=== PATIENT | female | born 2000 | race Caucasian/White ===

== ENCOUNTER 2020-09-05 14:33 | Inpatient (IN) | payer OTHER, MEDICAID ==
[~2020-09-05] VITALS: Ht 317.5 cm; Wt 84.8 kg
[2020-09-05] MEDS ORDERED: ACETAMINOPHEN 325MG TABLET PO ONE (15:00)
[2020-09-05] MEDS ORDERED: DEXAMETHASONE 4MG/ML 1ML VIAL IV ONE (15:00)
[2020-09-05] MEDS ORDERED: GUAIFENESIN/CODEINE 100-10MG/5ML UDC PO ONE (15:00)
[2020-09-05 15:39] LABS: BASOPHILS % 0.2 % (0.0-2.0); EOSINOPHILS % 0.1 % (0.0-5.0); HEMATOCRIT. 38.1 % (36.0-48.0); HEMOGLOBIN. 12.9 g/dL (12.0-16.0); LYMPHOCYTES % 23.8 % (20.0-50.0); MEAN CORPUSCULAR HEMOGLOBIN 27.7 pg (28.0-32.0); MEAN CORPUSCULAR VOLUME 81.9 fL (81.0-99.0); MEAN PLATELET VOLUME 8.9 fl (7.4-10.4); MONOCYTES % 5.6 % (2.0-8.0); NEUTROPHILS % 70.3 % (40.0-76.0); PLATELET 173 x1000/uL (130-400); RED BLOOD CELL COUNT 4.65 mill/uL (4.2-5.4); RED CELL DISTRIBUTION WIDTH 13.6 % (11.6-14.6)
[2020-09-05 15:46] LABS: CHLORIDE 106 mEq/L (98-107)
[2020-09-05 15:52] LABS: BG BASE EXCESS -1.9 mmol/L (-2.0-2.0); BG CARBOXYHEMOGLOBIN 0.1 % (0.5-1.5); BG DEOXYHEMOGLOBIN 6.8 % (0.0-5.0); BG HCO3 ACT 21.2 mmol/L (22.0-26.0); BG METHEMOGLOBIN 0.2 % (0.0-1.5); BG OXYGEN SATURATION 93.2 % (92.0-98.5); BG OXYHEMOGLOBIN 92.9 % (94.0-97.0); BG PCO2 31.4 mmHg (35.0-45.0); BG PH 7.448 (7.350-7.450); BG PO2 65.6 mmHg (75.0-100.0); BG SAMPLE SITE RIGHT RADIAL; BG TOTAL HEMOGLOBIN 13.2 g/dL (12.0-18.0); BG VENT MODE ROOM AIR
[2020-09-05] MEDS ORDERED: GUAIFENESIN/CODEINE 200-20MG/10ML UDC PO NR ×2 (16:00→16:50)
[2020-09-05] MEDS ORDERED: ALBUTEROL 6.7GM HFA INHALER ORI PRN (16:45)
[2020-09-05] MEDS ORDERED: NITROGLYCERIN 0.4MG TABLET SL SL PRN (16:45)
[2020-09-05] MEDS ORDERED: MAGNESIUM/ALUMINUM HYDROXIDE/SIMETHICONE 30ML UDC PO PRN (16:45)
[2020-09-05] MEDS ORDERED: CLONIDINE 0.1MG TABLET PO PRN (16:45)
[2020-09-05] MEDS ORDERED: DOCUSATE SODIUM 100MG CAPSULE PO PRN (16:45)
[2020-09-05] MEDS ORDERED: ACETAMINOPHEN 325MG TABLET PO PRN (16:45)
[2020-09-05] MEDS ORDERED: CEFTRIAXONE 1 G PREMIX 50 ML IV SCH (17:00)
[2020-09-05] MEDS ORDERED: KETOROLAC 15MG/ML VIAL IV PRN (17:08)
[2020-09-05] MEDS: ENOXAPARIN 40MG/0.4ML SYR SUBCUT SCH (17:47)
[2020-09-05 17:52] LABS: T4 FREE 1.27 ng/dL (0.76-1.46)
[2020-09-05] MEDS ORDERED: AZITHROMYCIN 500 MG in DEXT 5% WATER 250 ML IV SCH (18:00)
[2020-09-05 19:46] LABS: UCG SCREEN NEGATIVE
[2020-09-05] MEDS ORDERED: ZOLPIDEM TARTRATE 5MG TABLET PO PRN (20:00)
[2020-09-05 20:28] LABS: *BENZODIAZEPINES SCREEN URINE NEGATIVE (NEGATIVE); *COCAINE SCREEN URINE NEGATIVE (NEGATIVE); METHADONE URINE SCREEN NEGATIVE (NEGATIVE)
[2020-09-05 20:29] LABS: *AMPHETAMINES SCREEN URINE NEGATIVE (NEGATIVE); *BARBITURATES SCREEN URINE NEGATIVE (NEGATIVE); CANNABINOID URINE SCREEN NEGATIVE (NEGATIVE); OPIATES URINE SCREEN NEGATIVE (NEGATIVE); PHENCYCLIDINE URINE SCREEN NEGATIVE (NEGATIVE)
[2020-09-05] MEDS: FAMOTIDINE 20MG TABLET PO SCH (20:33)
[2020-09-05] MEDS: ASCORBIC ACID 500 MG TABLET PO SCH (20:33)
[2020-09-05] MEDS: GUAIFENESIN/DM 600MG/30MG ER TAB 12HR PO SCH (20:33)
[2020-09-05] MEDS: ALBUTEROL 6.7GM HFA INHALER ORI SCH (21:54)
[2020-09-06 01:03] LABS: CREATINE KINASE 251 IU/L (26-192)
[2020-09-06 01:04] LABS: CREATINE KINASE MB FRACTION < 1.0 ng/mL (0.5-3.6)
[2020-09-06] MEDS: ALBUTEROL 6.7GM HFA INHALER ORI SCH (02:20)
[2020-09-06 05:02] LABS: HEMATOCRIT. 35.6 % (36.0-48.0); MEAN CORPUSCULAR HEMOGLOBIN 27.7 pg (28.0-32.0); MEAN CORPUSCULAR VOLUME 82.3 fL (81.0-99.0); MEAN PLATELET VOLUME 8.7 fl (7.4-10.4); PLATELET 181 x1000/uL (130-400); RED BLOOD CELL COUNT 4.33 mill/uL (4.2-5.4); RED CELL DISTRIBUTION WIDTH 13.5 % (11.6-14.6)
[2020-09-06 05:10] LABS: CHLORIDE 107 mEq/L (98-107)
[2020-09-06 05:29] LABS: CREATINE KINASE 226 IU/L (26-192)
[2020-09-06 05:32] LABS: CREATINE KINASE MB FRACTION < 1.0 ng/mL (0.5-3.6)
[2020-09-06] MEDS ORDERED: DEXAMETHASONE 10 MG/ML VIAL IV SCH (09:00)
[2020-09-06 11:00] VITALS: BP 106/76
[2020-09-06] MEDS: ASCORBIC ACID 500 MG TABLET PO SCH ×2 (11:34→20:37)
[2020-09-06] MEDS: GUAIFENESIN/DM 600MG/30MG ER TAB 12HR PO SCH ×2 (11:34→20:37)
[2020-09-06] MEDS: CHOLECALCIFEROL (D3) 1000 UNIT TABLET PO SCH (11:34)
[2020-09-06] MEDS: FAMOTIDINE 20MG TABLET PO SCH ×2 (11:34→20:37)
[2020-09-06 11:48] LABS: PLATELET ESTIMATE NORMAL
[2020-09-06 12:00] VITALS: BP 117/71
[2020-09-06] MEDS ORDERED: GUAI600T26 PO (13:00)
[2020-09-06] MEDS ORDERED: GUAI5SYR3 GT (13:00)
[2020-09-06] MEDS ORDERED: TOPUD PO (13:00)
[2020-09-06] MEDS: ZINC SULFATE 220 MG ( 50 ) CAPSULE PO SCH (14:00)
[2020-09-06 16:00] VITALS: BP 115/70
[2020-09-06] MEDS ORDERED: BENZONATATE 100MG CAPSULE PO PRN (18:15)
[2020-09-06] MEDS: ENOXAPARIN 40MG/0.4ML SYR SUBCUT SCH (18:15)
[2020-09-06 20:00] VITALS: BP 105/45
[2020-09-06] MEDS: GUAIFENESIN 200MG/10ML SUGAR FREE UDC PO PRN (20:37)
[2020-09-06] MEDS: AZITHROMYCIN 500 MG in DEXT 5% WATER 250 ML IV SCH (20:37)
[2020-09-06] MEDS: CEFTRIAXONE 1,000 MG in DEXTROSE 5% WATER 50 ML IV SCH (22:24)
[2020-09-06] MEDS: ACETAMINOPHEN 325MG TABLET PO PRN (23:05)
[2020-09-07] VITALS: BP 106/56
[2020-09-07 04:00] VITALS: BP 99/62
[2020-09-07 05:54] LABS: CHLORIDE 109 mEq/L (98-107)
[2020-09-07 06:08] LABS: PHOSPHORUS 3.2 mg/dL (2.5-4.9)
[2020-09-07 06:16] LABS: BASOPHILS % 0.1 % (0.0-2.0); HEMATOCRIT. 35.9 % (36.0-48.0); HEMOGLOBIN. 12.4 g/dL (12.0-16.0); LYMPHOCYTES % 17.4 % (20.0-50.0); MEAN CORPUSCULAR HEMOGLOBIN 28.5 pg (28.0-32.0); MEAN CORPUSCULAR VOLUME 82.7 fL (81.0-99.0); MEAN PLATELET VOLUME 9.6 fl (7.4-10.4); MONOCYTES % 10.2 % (2.0-8.0); NEUTROPHILS % 72.3 % (40.0-76.0); PLATELET 225 x1000/uL (130-400); RED BLOOD CELL COUNT 4.35 mill/uL (4.2-5.4); RED CELL DISTRIBUTION WIDTH 13.5 % (11.6-14.6)
[2020-09-07 08:00] VITALS: BP 103/57
[2020-09-07] MEDS: GUAIFENESIN/DM 600MG/30MG ER TAB 12HR PO SCH ×2 (08:30→20:58)
[2020-09-07] MEDS: GUAIFENESIN 200MG/10ML SUGAR FREE UDC PO PRN ×3 (08:30→20:51)
[2020-09-07] MEDS: ZINC SULFATE 220 MG ( 50 ) CAPSULE PO SCH (08:30)
[2020-09-07] MEDS: ASCORBIC ACID 500 MG TABLET PO SCH ×2 (08:30→20:58)
[2020-09-07] MEDS: FAMOTIDINE 20MG TABLET PO SCH ×2 (08:30→20:58)
[2020-09-07] MEDS: CHOLECALCIFEROL (D3) 1000 UNIT TABLET PO SCH (08:31)
[2020-09-07] MEDS: DEXAMETHASONE 10 MG/ML VIAL IV SCH ×2 (08:31→17:11)
[2020-09-07] MEDS: ALBUTEROL 6.7GM HFA INHALER ORI SCH ×3 (08:36→20:51)
[2020-09-07 12:00] VITALS: BP 100/60
[2020-09-07] MEDS: ONDANSETRON HCL 4MG/2ML INJ IV PRN (14:43)
[2020-09-07 16:00] VITALS: BP 99/68
[2020-09-07] MEDS: AZITHROMYCIN 500 MG in DEXT 5% WATER 250 ML IV SCH (17:08)
[2020-09-07] MEDS: CEFTRIAXONE 1,000 MG in DEXTROSE 5% WATER 50 ML IV SCH (17:08)
[2020-09-07] MEDS: ENOXAPARIN 40MG/0.4ML SYR SUBCUT SCH (17:08)
[2020-09-07 20:00] VITALS: BP 120/64
[2020-09-07] MEDS: ACETAMINOPHEN 325MG TABLET PO PRN (20:53)
[2020-09-08] VITALS: BP 102/59
[2020-09-08] MEDS: ALBUTEROL 6.7GM HFA INHALER ORI SCH ×4 (02:50→21:05)
[2020-09-08 04:00] VITALS: BP 94/51
[2020-09-08 08:00] VITALS: BP 106/66
[2020-09-08] MEDS: ONDANSETRON HCL 4MG/2ML INJ IV PRN (08:14)
[2020-09-08] MEDS: DEXAMETHASONE 10 MG/ML VIAL IV SCH ×2 (08:14→16:58)
[2020-09-08] MEDS: ZINC SULFATE 220 MG ( 50 ) CAPSULE PO SCH (08:15)
[2020-09-08] MEDS: CHOLECALCIFEROL (D3) 1000 UNIT TABLET PO SCH (08:15)
[2020-09-08] MEDS: GUAIFENESIN 200MG/10ML SUGAR FREE UDC PO PRN ×2 (08:15→16:58)
[2020-09-08] MEDS: ASCORBIC ACID 500 MG TABLET PO SCH ×2 (08:15→21:04)
[2020-09-08] MEDS: FAMOTIDINE 20MG TABLET PO SCH ×2 (08:15→21:04)
[2020-09-08] MEDS: GUAIFENESIN/DM 600MG/30MG ER TAB 12HR PO SCH ×2 (10:16→21:04)
[2020-09-08] MEDS: ENOXAPARIN 40MG/0.4ML SYR SUBCUT SCH (16:59)
[2020-09-08] MEDS: AZITHROMYCIN 500 MG in DEXT 5% WATER 250 ML IV SCH (16:59)
[2020-09-08] MEDS: CEFTRIAXONE 1,000 MG in DEXTROSE 5% WATER 50 ML IV SCH (17:11)
[2020-09-08 20:00] VITALS: BP 105/58
[2020-09-09] VITALS: BP 102/101
[2020-09-09] MEDS: ALBUTEROL 6.7GM HFA INHALER ORI SCH ×4 (02:54→20:26)
[2020-09-09 04:00] VITALS: BP 100/57
[2020-09-09 08:00] VITALS: BP 108/65
[2020-09-09] MEDS: GUAIFENESIN 200MG/10ML SUGAR FREE UDC PO PRN (08:21)
[2020-09-09] MEDS: CHOLECALCIFEROL (D3) 1000 UNIT TABLET PO SCH (08:22)
[2020-09-09] MEDS: GUAIFENESIN/DM 600MG/30MG ER TAB 12HR PO SCH ×2 (08:22→20:24)
[2020-09-09] MEDS: ZINC SULFATE 220 MG ( 50 ) CAPSULE PO SCH (08:22)
[2020-09-09] MEDS: DEXAMETHASONE 10 MG/ML VIAL IV SCH ×2 (08:22→16:53)
[2020-09-09] MEDS: ONDANSETRON HCL 4MG/2ML INJ IV PRN (08:22)
[2020-09-09] MEDS: FAMOTIDINE 20MG TABLET PO SCH ×2 (08:22→20:24)
[2020-09-09] MEDS: ASCORBIC ACID 500 MG TABLET PO SCH ×2 (08:22→20:24)
[2020-09-09] MEDS: AZITHROMYCIN 500 MG in DEXT 5% WATER 250 ML IV SCH (16:53)
[2020-09-09] MEDS: CEFTRIAXONE 1,000 MG in DEXTROSE 5% WATER 50 ML IV SCH (16:53)
[2020-09-09] MEDS: ENOXAPARIN 40MG/0.4ML SYR SUBCUT SCH (16:53)
[2020-09-09 20:00] VITALS: BP 108/55
[2020-09-10] VITALS: BP 106/52
[2020-09-10] MEDS: ALBUTEROL 6.7GM HFA INHALER ORI SCH ×2 (03:10→08:06)
[2020-09-10] MEDS: GUAIFENESIN 200MG/10ML SUGAR FREE UDC PO PRN (03:12)
[2020-09-10 04:00] VITALS: BP 106/67
[2020-09-10 08:00] VITALS: BP 106/53
[2020-09-10] MEDS: CHOLECALCIFEROL (D3) 1000 UNIT TABLET PO SCH (08:05)
[2020-09-10] MEDS: GUAIFENESIN/DM 600MG/30MG ER TAB 12HR PO SCH (08:05)
[2020-09-10] MEDS: FAMOTIDINE 20MG TABLET PO SCH (08:05)
[2020-09-10] MEDS: ZINC SULFATE 220 MG ( 50 ) CAPSULE PO SCH (08:05)
[2020-09-10] MEDS: ASCORBIC ACID 500 MG TABLET PO SCH (08:05)
[2020-09-10] MEDS: DEXAMETHASONE 10 MG/ML VIAL IV SCH (08:05)
[2020-09-10 12:00] VITALS: BP 100/60
== END 2020-09-10 13:15 | disposition home or self-care (01) | DRG 871 ==
LOC: ER 14:56 → MICUSO 16:18 → SUPCPDRO 17:17 → 8WST 09-06 08:54
PROVIDERS: ADMIT Internal Medicine; ATTEND Internal Medicine
DX: A41.89 Other specified sepsis (principal); J96.01 Acute respiratory failure with hypoxia; U07.1 COVID-19; J12.82 Pneumonia due to coronavirus disease 2019; E44.1 Mild protein-calorie malnutrition; Z68.1 Body mass index [BMI] 19.9 or less, adult; E83.51 Hypocalcemia; E66.9 Obesity, unspecified; J45.909 Unspecified asthma, uncomplicated; B97.89 Other viral agents as the cause of diseases classified elsewhere; J31.0 Chronic rhinitis; R65.20 Severe sepsis without septic shock; Z87.09 Personal history of other diseases of the respiratory system; Z79.899 Other long term (current) drug therapy
CPT/HCPCS: 36415; 36600; 71045; 80053; 80061; 80305; 81025; 82375; 82550; 82553; 82728; 82805; 83036; 83605; 83615; 83735; 83880; 84100; 84439; 84443; 84484; 85025; 85379; 86140; 93005; 93970; 94640; 99291; J0456; J0696; J1100; J1650; J2405; J7040; J7060; U0003